=== PATIENT | male | born 1950 | race Caucasian/White ===

== ENCOUNTER 2016-10-31 11:10 | Emergency (ER) | payer MEDICARE, OTHER ==
[~2016-10-31] VITALS: Ht 177.8 cm; Wt 95.5 kg
[~2016-10-31 11:10] MED LIST: CYCL-36 PO; LORT5TAB PO; MELO15TA2 PO; Z.0.NO CURRENT MEDS
[2016-10-31 11:12] VITALS: BP 166/96; PULSE 75; RESP 20; TEMP 98.8; O2SAT 97
[2016-10-31] MEDS ORDERED: AUGM875T3 PO (11:30)
--- NOTE | 2016-10-31 11:31 | PD ---
HPI Chief Complaint: Oral / Dental Pain or Problem Time Seen by Provider: 11:20 Travel History International Travel<30 days: No Contact w/Intl Traveler<30days: No Traveled to known affect area: No History of Present Illness HPI 65-year-old male presents emergency department for evaluation of right lower dental pain. Patient reports symptom onset 3 days ago. He reports he has a decayed chipped tooth in that region and has had multiple dental abscesses in the past. He reports the pain as sharp, constant, nonradiating, worse with eating or drinking, severity 6 out of 10. He denies fever, chills, nausea vomiting, or difficulty swallowing. PFSH Past Medical History Medical History: Denies Significant Hx Ectopic : No Past Surgical History Other Surgery: Yes (HERNIA REPAIR-12/20) Social History Alcohol Use: Yes (occasional) Tobacco Use: No Substance Use: No Allergies-Medications (Allergen,Severity, Reaction): Coded Allergies: Aspirin (Verified Allergy, Mild, 10/31/16) Reported Meds & Prescriptions Reported Meds & Active Scripts Active No Active Prescriptions or Reported Medications Review of Systems Except as stated in HPI: all other systems reviewed are Neg Physical Exam Narrative GENERAL: Well-nourished, well-developed patient. SKIN: Focused skin assessment warm/dry. HEAD: Normocephalic. EYES: No scleral icterus. No injection or drainage. MOUTH: Tooth #30 tooth is decayed and fractured with surrounding gum erythema and swelling. NECK: Supple, trachea midline. No JVD or lymphadenopathy. CARDIOVASCULAR: Regular rate and rhythm without murmurs, gallops, or rubs. RESPIRATORY: Breath sounds equal bilaterally. No accessory muscle use. Data Data Last Documented VS Vital Signs Date Time Temp Pulse Resp B/P Pulse Ox O2 Delivery O2 Flow Rate FiO2 10/31/16 11:12 98.8 75 20 166/96 97 MDM Medical Decision Making Medical Screen Exam Complete: Yes Emergency Medical Condition: Yes Differential Diagnosis Dental abscess, dental caries, periodontal disease Narrative Course CT 5-year-old male presents emergency Department with a three-day history of right lower dental pain. Patient has a decayed and fractured tooth at the site. He has mild gum erythema and swelling. He denies fever chills. Patient be treated for dental abscess instructed follow-up with his dentist. Diagnosis Primary Impression: Dental abscess Referrals: Dentist Additional Instructions: Take medications as prescribed. Take Tylenol or Motrin as needed for pain. Follow-up with your dentist. Scripts Amoxicillin-Clavulanate (Augmentin)875-125 Mg Tab1 Tab PO BID #20 TAB Prov:Julia Lund 10/31/16 Disposition: 01 DISCHARGE HOME Condition: Stable Julia Lund Oct 31, 2016 11:31
== END 2016-10-31 11:38 | disposition home or self-care (01) ==
LOC: PHEFT 11:10
DX: K04.7 Periapical abscess without sinus (principal)
CPT/HCPCS: 99283